=== PATIENT | female | born 2005 | race Hispanic/Latino ===

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

== ENCOUNTER 2024-04-29 22:50 | Emergency (ER) | payer SELFPAY ==
[~2024-04-29] VITALS: Ht 152.4 cm; Wt 63.5 kg
[~2024-04-29 22:50] MED LIST: ACET-66 PO
--- NOTE | 2024-04-29 23:28 | ERN ---
General Chief Complaint: Finger Injury Stated Complaint: UNABLE TO REMOVE RING FROM LEFT 4TH FINGER Time Seen by MD: 22:55 Time Seen by Midlevel: 22:55 Source: patient History of Present Illness Initial Comments No significant past medical history presenting with a ring stuck to her left 4th finger. Patient states the ring became stuck approximately 2 hours prior to arrival. She reports mild swelling to the area but rates her pain 1/10. Allergies: Coded Allergies: No Known Allergies (Unverified Allergy, Unknown, 08/24/22) Home Meds Active Scripts Acetaminophen (Tylenol) 500 Mg Tab, 500 MG PO Q6HPRN PRN for FEVER for 5 Days, #30 TAB Prov:ZEFERINO SOTO MD 08/24/22 Past Medical History Past Medical History: No Pertinent History Past Surgical History: None Female( History) LMP: Apr 27, 2024 ROS Dictation CONSTITUTIONAL: Negative except for HPI HEAD/FACE: Negative except for HPI EENT: Negative except for HPI RESPIRATORY: Negative except for HPI GASTROINTESTINAL/ABDOMINAL: Negative except for HPI GENITOURINARY: Negative except for HPI MUSCULOSKELETAL: Negative except for HPI INTEGUMENTARY: Negative except for HPI NEUROLOGICAL/PSYCH: Negative except for HPI HEMATOLOGIC/LYMPHATIC: Negative except for HPI All Systems Negative, Except as noted above. 13 point review of systems assessed and all negative except for above. Physical Exam Physical Exam Dictation PHYSICAL EXAM: GENERAL: alert,, awake oriented x 3 HEENT: EOMI, Sclera non icteric, moist mucosa NECK: Supple, no JVD, trachea midline LUNGS: Clear breath sounds bilaterally. No wheezes HEART: Regular rate and rhythm. Normal S1 and S2, without murmurs ABD: Abdomen soft, nontender. Bowel sounds present EXT: Ring to left 4th digit with mild to moderate swelling, unable to remove ring NEURO: Alert and oriented to person, follows commands MDM MDM: No significant past medical history presenting with a ring stuck to her left 4th finger. Patient states the ring became stuck approximately 2 hours prior to arrival. She reports mild swelling to the area but rates her pain 1/10. On physical examination there is a ring to the left 4th finger with [id number] swelling. The ring was immediately with specialized caleb. Patient is stable for discharge patient has full range motion of the left 4th digit along with normal capillary refill. Differential diagnosis: Ring stuck in finger There are no social concerns with this patient. Prescription drug management Prescriptions will include: None Medical management and examination interpretation discussions were had by me with other qualified healthcare professionals as indicated for the patient's care. ED Course Vital Signs Date Time Temp Pulse Resp B/P (MAP) Pulse Ox O2 Delivery O2 Flow Rate FiO2 04/29/24 23:42 97.5 72 16 118/62 100 Room Air* 0 21 04/29/24 22:51 97.9 67 16 113/65 100 Room Air DX & DISP Disposition: Discharge Departure Impression: Primary Impression: Tight ring on finger Condition: Stable Additional Instructions: Your ring was successfully removed with no complications. Follow up with PCP in 2-3 days for repeat evaluation. Return to the ER for any new or worsening symptoms. Referrals: SELF,REFERRAL (PCP) Time of Disposition: 23:27 I have reviewed the case, and I agree with, Diagnosis and Plan I performed the substantive portion of the visit. I have reviewed and personally made and approve the management plan that is documented in the note by myself or the SHAKA. I acknowledge for responsibility for the patient's management plan. JASWINDER ASHTON Apr 29, 2024 23:28
[2024-04-29 23:42] VITALS: BP 118/62; PULSE 72; RESP 16; TEMP 97.5; O2SAT 100
== END 2024-04-29 23:43 | disposition home or self-care (01) ==
LOC: EDH 22:50
DX: S60.449A External constriction of unspecified finger, initial encounter (principal); W49.04XA Ring or other jewelry causing external constriction, initial encounter; Y93.9 Activity, unspecified; Y92.9 Unspecified place or not applicable; Y99.9 Unspecified external cause status